=== PATIENT | female | born 1950 ===

== ENCOUNTER 2017-12-01 00:55 | Outpatient (CLI) | payer MEDICARE | END 2017-12-01 23:59 | disposition home or self-care (01) | LOC: DIABETIC 00:55 | PROVIDERS: ATTEND Surgery | DX: Z71.3 Dietary counseling and surveillance (principal); E66.01 Morbid (severe) obesity due to excess calories; M19.90 Unspecified osteoarthritis, unspecified site; E07.9 Disorder of thyroid, unspecified | CPT/HCPCS: 97802 ==

== ENCOUNTER 2017-12-31 03:40 | Outpatient (CLI) | payer MEDICARE | END 2017-12-31 23:59 | disposition home or self-care (01) | LOC: DIABETIC 03:40 | PROVIDERS: ATTEND Surgery | DX: E66.01 Morbid (severe) obesity due to excess calories (principal); Z71.3 Dietary counseling and surveillance; M19.90 Unspecified osteoarthritis, unspecified site; I10 Essential (primary) hypertension; G47.30 Sleep apnea, unspecified; Z68.37 Body mass index [BMI] 37.0-37.9, adult | CPT/HCPCS: 97802 ==

== ENCOUNTER 2018-01-26 02:25 | Outpatient (CLI) | payer MEDICARE | END 2018-01-26 23:59 | disposition home or self-care (01) | LOC: DIABETIC 02:25 | PROVIDERS: ATTEND Surgery | DX: Z71.3 Dietary counseling and surveillance (principal); E66.01 Morbid (severe) obesity due to excess calories; M19.90 Unspecified osteoarthritis, unspecified site; G47.30 Sleep apnea, unspecified | CPT/HCPCS: 97802 ==